=== PATIENT | female | born 1995 | race Caucasian/White ===

== ENCOUNTER 2019-02-23 21:40 | Emergency (ER) | payer OTHER ==
[2019-02-24] MEDS ORDERED: OXYCODONE-ACETAMINOPHEN 5-325 MG TABLET PO ONE (00:45)
--- NOTE | 2019-02-24 00:47 | ER Document Report ---
ED General - General Chief Complaint: Hand Burn Stated Complaint: LEFT HAND BURN Time Seen by Provider: 02/24/19 00:33 - HPI Notes: Patient is a 23-year-old female presents emergency department for evaluation after sustaining a burn to her left hand. She is right-hand dominant. She states it was hot sizzling butter. She was able to complete cooking her meals, eating her meal, then presents to the ED for further evaluation. Her tetanus is up-to-date. She denies any other injury. No inhalation injury. - Related Data Allergies/Adverse Reactions: No Known Allergies Allergy (Unverified 02/23/19 22:29) Home Medications: Oral contraceptives, Zoloft, Nexium Past Medical History - General Information source: Patient - Social History Smoking Status: Current Every Day Smoker Family History: Reviewed & Not Pertinent Patient has suicidal ideation: No Patient has homicidal ideation: No GI Medical History: Reports: Hx Gastroesophageal Reflux Disease Psychiatric Medical History: Reports: Hx Anxiety Past Surgical History: Reports: Hx Section Review of Systems - Review of Systems Constitutional: No symptoms reported EENT: No symptoms reported Cardiovascular: No symptoms reported Respiratory: No symptoms reported Gastrointestinal: No symptoms reported Genitourinary: No symptoms reported Musculoskeletal: No symptoms reported Skin: See HPI Neurological/Psychological: No symptoms reported Physical Exam - Vital signs Vitals: Temp Pulse Resp BP Pulse Ox 98.0 F 91 17 168/100 H 97 02/23/19 22:28 02/23/19 22:28 02/23/19 22:28 02/23/19 22:28 02/23/19 22:28 - Notes Notes: Vital signs reviewed, please refer to chart. Head is normocephalic, atraumatic. Pupils equal round, reactive to light. Neck is supple without meningismus. Heart is regular rate and rhythm. Lungs are clear to auscultation bilaterally. Patient is awake and alert, neurological exam is nonfocal. Examination of left upper extremity yields approximately partial-thickness shin to the dorsum of the hand, and the space between the thumb and the index finger. The ulnar aspect of the thumb and the radial aspect of the index finger are affected. There absolutely no circumferential shin. She does have a 2-1/2 cm bulla on the ulnar aspect of the proximal phalanx of the index finger. She does have a small 1 to 2 cm scattered shin, consistent with/injury, on the radial aspect of the wrist. She has full range of motion of the thumb and all fingers. Sensation is intact. Course - Re-evaluation Re-evalutation: 02/24/19 01:04 Patient presents emergency department for evaluation of partial thickness burn to the left hand. None of these are circumferential. I did de-roof the bullae, using sterile scissors and forceps. The patient tolerated this well. The wound was dressed in Silvadene dressing. The patient was told to keep the wound clean with soap and water, change bandages daily, dressed with bacitracin. None of these shin are circumferential. They are primarily first-degree. None of them cross the joint. I do not believe that this warrants burn center follow-up at this time. She is to follow-up closely with primary care, and patient voices understanding. - Vital Signs Vital signs: Temp Pulse Resp BP Pulse Ox 98.0 F 91 17 168/100 H 97 02/23/19 22:28 02/23/19 22:28 02/23/19 22:28 02/23/19 22:28 02/23/19 22:28 - Laboratory Laboratory results interpreted by me: 02/23/19 22:53 Urine Ketones TRACE H Urine Urobilinogen 2.0 H Discharge - Discharge Clinical Impression: Partial thickness burn of left hand Condition: Stable Disposition: HOME, SELF-CARE Instructions: Shin ([facility]), Soap Cleansing ([facility]) Additional Instructions: Keep wound clean with soap and water. Change bandages daily, more frequently if they become soiled. Follow-up with your primary care physician in 1 to 2 days. If you develop increased pain, fevers, red streaks, vomiting, or any other new or concerning symptoms, please return immediately to the emergency department for reevaluation.
[2019-02-24 00:48] LABS: APPEARANCE,URINE SLIGHTLY-CLOUDY; BILIRUBIN,URINE NEGATIVE (NEGATIVE); CALCIUM OXALATE CRYSTALS,URINE FEW /HPF; COLOR,URINE YELLOW; GLUCOSE, URINE NEGATIVE (NEGATIVE); KETONES,URINE TRACE mg/dL (NEGATIVE); LEUKOCYTE ESTERASE,URINE NEGATIVE (NEGATIVE); NITRITE,URINE NEGATIVE (NEGATIVE); PROTEIN,URINE NEGATIVE (NEGATIVE)
[2019-02-24 02:11] VITALS: BP 136/79
== END 2019-02-24 02:12 | disposition home or self-care (01) ==
LOC: ER 21:40
DX: T23.222A Burn of second degree of single left finger (nail) except thumb, initial encounter (principal); T23.072A Burn of unspecified degree of left wrist, initial encounter; X12.XXXA Contact with other hot fluids, initial encounter; Y93.G3 Activity, cooking and baking; Y92.009 Unspecified place in unspecified non-institutional (private) residence as the place of occurrence of the external cause; K21.9 Gastro-esophageal reflux disease without esophagitis; F17.200 Nicotine dependence, unspecified, uncomplicated; Z79.899 Other long term (current) drug therapy; Z79.3 Long term (current) use of hormonal contraceptives
CPT/HCPCS: 81001

== ENCOUNTER 2020-01-03 16:51 | Emergency (ER) | payer OTHER ==
[2020-01-03] MEDS ORDERED: ONDANSETRON HCL INJ/PF 4 MG/2 ML SDV IV ONE (17:20)
[2020-01-03] MEDS ORDERED: NORMAL SALINE 1000 ML 1,000 ML IV ONE ×2 (17:20→19:34)
--- NOTE | 2020-01-03 17:33 | ER Document Report ---
ED GI/ - General Chief Complaint: Nausea/Vomiting/Diarrhea Stated Complaint: NAUSEA/VOMITING/DIARRHEA Time Seen by Provider: 01/03/20 17:00 Primary Care Provider: JOVANNY NUÑEZ PA [Primary Care Provider] - Follow up as needed Notes: CHIEF COMPLAINT: Abdominal pain and vomiting HPI: 24-year-old obese female presenting for abdominal pain and vomiting over the last 3 days. Some small amount of diarrhea. No fever but has had chills. Reports increased frequency of urination. States the pain is across the entire lower abdomen thought she was getting cramping and discomfort because her menstrual cycle is due she is not sure if she might be but states she is on the pill so believes it to be less likely. Has thrown up multiple times over the last 2 or 3 days. No chest pain shortness of breath or cough. 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 ALLERGIES: I agree with the allergies as charted by the RN. PAST MEDICAL HISTORY/PAST SURGICAL HISTORY: Reviewed and agree as charted by RN. SOCIAL HISTORY: Reviewed and agree as charted by RN. FAMILY HISTORY: No significant familial comorbid conditions directly related to patient complaint EXAM: Reviewed vital signs as charted by RN. CONSTITUTIONAL: Alert and oriented and responds appropriately to questions. Well-appearing; well-nourished HEAD: Normocephalic; atraumatic EYES: PERRL; Conjunctivae clear, sclerae non-icteric ENT: normal nose; no rhinorrhea; moist mucous membranes; pharynx without lesions noted, no uvula edema or deviation, no tonsillar hypertrophy, phonation normal NECK: Supple without meningismus; non-tender; no cervical lymphadenopathy, no masses CARD: Mild tachycardia; no murmurs, no clicks, no rubs, no gallops; symmetric distal pulses RESP: Normal chest excursion without splinting or tachypnea; breath sounds clear and equal bilaterally; no wheezes, no rhonchi, no rales, pulse oximetry 97% on room air not hypoxic ABD/GI: Obese, normal bowel sounds; non-distended; soft, there is tenderness in the left upper quadrant on palpation. There is tenderness in the right lower quadrant on palpation. Mild tenderness over the suprapubic region is noted, no rebound, no guarding; no palpable organomegaly or masses. BACK: The back appears normal and is non-tender to palpation, there is no CVA tenderness EXT: Normal ROM in all joints; non-tender to palpation; no cyanosis, no effusions, no edema SKIN: Normal color for age and race; warm; dry; good turgor; no acute lesions noted NEURO: Moves all extremities equally; Motor and sensory function intact PSYCH: The patient's mood and manner are appropriate. Grooming and personal hygiene are appropriate. MDM: 24-year-old female presenting with abdominal pain vomiting and diarrhea wi th chills. She is concerned for COVID. Will obtain baseline screening labs, plan for CT to evaluate for possible colitis or appendicitis. Will initially obtain test as she was concerned she might be although believes it is less likely - Related Data Allergies/Adverse Reactions: No Known Allergies Allergy (Unverified 02/23/19 22:29) Past Medical History - Social History Smoking Status: Unknown if Ever Smoked Family History: Reviewed & Not Pertinent GI Medical History: Reports: Hx Gastroesophageal Reflux Disease Psychiatric Medical History: Reports: Hx Anxiety Past Surgical History: Reports: Hx Section Physical Exam - Vital signs Vitals: Temp Pulse Resp BP Pulse Ox 99.0 F 112 H 20 172/94 H 96 01/03/20 16:59 01/03/20 16:59 01/03/20 16:59 01/03/20 16:59 01/03/20 16:59 Course - Re-evaluation Re-evalutation: 01/03/20 17:34 Patient also reports loss of taste for the last 3 to 4 days 01/03/20 19:[address] Griffin, surgery. Patient has elevated leukocytosis 22,000, they did not specifically see the appendix on CT but described no inflammatory changes on the CT. I asked him to review the case, he indicates that patient does not need reimaging with oral contrast as there is no stranding and it is unlikely she has appendicitis with no inflammatory changes or stranding noted on the CT given her body size. I will go perform a pelvic on the patient, send her for pelvic ultrasound to ensure we are not missing a pelvic inflammatory disease. Patient on reexam still has tenderness of the right lower quadrant but also across the pelvis and left pelvis now. She does state that she feels slightly better and slightly hungry. The elevated leukocytosis may be reactive to her vomiting. 01/03/20 19:51 With female tape recorder repairer present pelvic exam was performed. Normal external g enitalia. No visible external lesions. No visible purulent discharge. Cervical os appears closed. No significant cervical motion tenderness on exam. Bimanual exam shows moderate tenderness in the left adnexa, mild tenderness in the right adnexa no palpable masses. 01/03/20 21:28 case discussed with attending Dr. Long. Patient she is feeling better. Leukocytosis has improved this may just have been a stress reaction from the vomiting. Ultrasound does not show any acute findings. Low suspicion for PID. Patient is a person under investigation for COVID. She will self quarantine at home, Mallika [place], strict return precautions. If pain worsens, localizes further to the right lower quadrant, she develops fever greater than 101, will return for reevaluation. 01/03/20 21:31 Nursing will recheck vital signs and notify me of abnormalities prior to discharge - Vital Signs Vital signs: Temp Pulse Resp BP Pulse Ox 99 F 112 H 20 172/94 H 96 01/03/20 17:35 01/03/20 16:59 01/03/20 16:59 01/03/20 16:59 01/03/20 16:59 - Laboratory Result Diagrams: 01/03/20 21:00 01/03/20 17:29 Laboratory results interpreted by me: 01/03/20 01/03/20 01/03/20 17:29 17:29 17:29 WBC 22.7 H Hct Absolute Neuts (auto) Seg Neutrophils % Seg Neuts % (Manual) 83 H Lymphocytes % (Manual) 9 L Abs Neuts (Manual) 18.8 H Abs Monocytes (Manual) 1.6 H Sodium 136.8 L Glucose 117 H Urine Blood SMALL H 01/03/20 21:00 WBC 17.6 H Hct 35.8 L Absolute Neuts (auto) 13.9 H Seg Neutrophils % 78.6 H Seg Neuts % (Manual) Lymphocytes % (Manual) Abs Neuts (Manual) Abs Monocytes (Manual) Sodium Glucose Urine Blood Discharge - Discharge Clinical Impression: Abdominal pain, bilateral lower quadrant, Person under investigation for COVID- 19 Vomiting Qualifiers: Vomiting type: unspecified Vomiting Intractability: non-intractable Nausea presence: with nausea Qualified Code(s): R11.2 - Nausea with vomiting, unspecified Leukocytosis Qualifiers: Leukocytosis type: unspecified Qualified Code(s): D72.829 - Elevated white blood cell count, unspecified Condition: Stable Disposition: HOME, SELF-CARE Instructions: Vomiting ([facility]), COVID-19 Guidance for Persons Under Investigation Additional Instructions: You are considered a person under investigation for COVID-19 at this time, self quarantine at home until you have your test results which may take 2 to 5 days. You should hear from someone at the hospital about your test results. Take Zofran for nausea vomiting, Bentyl for abdominal pain or spasm. Your CT imaging, ultrasound imaging today did not show a definitive reason for your pain or vomiting. If you have worsening symptoms please return for reevaluation Prescriptions: Dicyclomine HCl [Bentyl 20 mg Tablet] 20 mg PO Q6H PRN #20 tablet PRN Reason: Ondansetron [Zofran Odt 4 mg Tablet] 1 - 2 tab PO Q4H PRN #15 tab.rapdis PRN Reason: For Nausea/Vomiting Forms: Return to Work Referrals: JOVANNY NUÑEZ PA [Primary Care Provider] - Follow up as needed
[2020-01-03 17:44] LABS: HEMATOCRIT 40.5 % (36.0-47.0); HEMOGLOBIN 13.5 g/dL (12.0-15.5); MEAN CORPUSCULAR HEMOGLOBIN 28.2 pg (27.0-33.4); MEAN CORPUSCULAR HGB CONC 33.5 g/dL (32.0-36.0); MEAN CORPUSCULAR VOLUME 84 fl (80-97); PLATELET COUNT 303 10^3/uL (150-450); RED CELL DISTRIBUTION WIDTH 13.2 % (11.5-14.0); WHITE BLOOD COUNT 22.7 10^3/uL (4.0-10.5)
[2020-01-03 17:48] LABS: APPEARANCE,URINE CLEAR; BILIRUBIN,URINE NEGATIVE (NEGATIVE); COLOR,URINE STRAW; GLUCOSE, URINE NEGATIVE (NEGATIVE); KETONES,URINE NEGATIVE (NEGATIVE); LEUKOCYTE ESTERASE,URINE NEGATIVE (NEGATIVE); NITRITE,URINE NEGATIVE (NEGATIVE); PROTEIN,URINE NEGATIVE (NEGATIVE); URINE SPECIFIC GRAVITY 1.013; UROBILINOGEN,URINE NEGATIVE mg/dL (<2.0)
[2020-01-03 18:01] LABS: ALBUMIN 4.1 g/dL (3.5-5.0); ALKALINE PHOSPHATASE 88 U/L (38-126); ANION GAP 11 (5-19); ASPARTATE AMINO TRANSFERASE 27 U/L (14-36); BILIRUBIN,DIRECT 0.3 mg/dL (0.0-0.4); BILIRUBIN,TOTAL 0.5 mg/dL (0.2-1.3); BLOOD UREA NITROGEN 10 mg/dL (7-20); CALCIUM 9.5 mg/dL (8.4-10.2); CARBON DIOXIDE 24 mmol/L (22-30); CHLORIDE 102 mmol/L (98-107); GLUCOSE 117 mg/dL (75-110); POTASSIUM 4.3 mmol/L (3.6-5.0); TOTAL PROTEIN 7.1 g/dL (6.3-8.2)
[2020-01-03 18:06] LABS: ABSOLUTE MONOCYTES # (MANUAL) 1.6 10^3/uL (0.1-1.4); BASOPHILS % (MANUAL) 0 % (0-2); EOSINOPHILS % (MANUAL) 1 % (0-6); LYMPHOCYTES % (MANUAL) 9 % (13-45); MONOCYTES % (MANUAL) 7 % (3-13); PLATELET COMMENT ADEQUATE; RBC MORPHOLOGY COMMENT NORMO-CYTIC/CHROMIC; SEGMENTED NEUTROPHILS % (MAN) 83 % (42-78); TOTAL CELLS COUNTED 100
[2020-01-03] MEDS ORDERED: MORPHINE SULFATE 10 MG/ML INJ IV ONE (18:18)
--- NOTE | 2020-01-03 18:37 | RADIOLOGY REPORT (SQ) ---
EXAM DESCRIPTION: CHEST SINGLE VIEW IMAGES COMPLETED DATE/TIME: 01/03/2020 6:29 pm REASON FOR STUDY: sob COMPARISON: None. NUMBER OF VIEWS: One view. TECHNIQUE: Single frontal radiographic view of the chest acquired. LIMITATIONS: None. FINDINGS: LUNGS AND PLEURA: No opacities, masses or pneumothorax. No pleural effusion. MEDIASTINUM AND HILAR STRUCTURES: No masses. Contour normal. HEART AND VASCULAR STRUCTURES: Heart normal in size. Normal vasculature. BONES: No acute findings. HARDWARE: None in the chest. OTHER: No other significant finding. IMPRESSION: NO SIGNIFICANT RADIOGRAPHIC FINDING IN THE CHEST. TECHNICAL DOCUMENTATION: JOB ID: [id number] 2010 [employer]- All Rights Reserved Reading location - IP/workstation name: [email or web address]
--- NOTE | 2020-01-03 19:13 | RADIOLOGY REPORT (SQ) ---
EXAM DESCRIPTION: CT ABD/PELVIS WITH IV ONLY IMAGES COMPLETED DATE/TIME: 01/03/2020 6:58 pm REASON FOR STUDY: lower abd pain COMPARISON: None. TECHNIQUE: CT scan of the abdomen and pelvis performed using helical scanning technique with dynamic intravenous contrast injection. No oral contrast. Images reviewed with lung, soft tissue, and bone windows. Reconstructed coronal and sagittal MPR images reviewed. Delayed images for evaluation of the urinary system also acquired. All images stored on PACS. All CT scanners at this facility use dose modulation, iterative reconstruction, and/or weight based d osing when appropriate to reduce radiation dose to as low as reasonably achievable (ALARA). [facility]: Dose Right [facility]: CareDose [facility]: Dose Right [facility]: Teradose 4D [facility]: [employer] CONTRAST TYPE AND DOSE: contrast/concentration: Isovue mmol/ml; Total Contrast Delivered: 99.0 ml; Total Saline Delivered: 55.9 ml RENAL FUNCTION: GFR > 60. RADIATION DOSE: CT Rad equipment meets quality standard of care and radiation dose reduction techniq ues were employed. CTDIvol: 19.2 - 21.1 mGy. DLP: 2096 mGy-cm.. LIMITATIONS: None. FINDINGS: LOWER CHEST: No significant findings. No nodules or infiltrates. LIVER: Normal size. Mild fatty change. No masses. No dilated ducts. SPLEEN: Normal size. No focal lesions. PANCREAS: No masses. No significant calcifications. No adjacent inflammation or peripancreatic fluid collections. Pancreatic duct not dilated. GALLBLADDER: Gallstones. No inflammatory changes to suggest cholecystitis. ADRENAL GLANDS: No significant masses or asymmetry. RIGHT KIDNEY AND URETER: No solid masses. 3 mm midpole calculus. No hydronephrosis or hydroureter . LEFT KIDNEY AND URETER: No solid masses. No significant calcifications. No hydronephrosis or hydr oureter. AORTA AND VESSELS: No aneurysm. No dissection. Renal arteries, SMA, celiac without stenosis. RETROPERITONEUM: No retroperitoneal adenopathy, hemorrhage or masses. BOWEL AND PERITONEAL CAVITY: No masses or inflammatory changes. No free fluid or peritoneal masses. APPENDIX: Not visualized. PELVIS: No mass. No free fluid. Normal bladder. ABDOMINAL WALL: Fat containing lower anterior abdominal wall hernia. BONES: No significant or acute findings. OTHER: No other significant finding. IMPRESSION: 1. Cholelithiasis. 2. Nonobstructing right nephrolithiasis. TECHNICAL DOCUMENTATION: JOB ID: [id number] Quality ID # [id number]: Final reports with documentation of one or more dose reduction techniques (e.g., Au tomated exposure control, adjustment of the mA and/or kV according to patient size, use of iterative reconstruction technique) 2010 [employer]- All Rights Reserved Reading location - IP/workstation name: [email or web address]
[2020-01-03 20:13] LABS: EPITHELIALS (WET MOUNT) 3+ EPITHELIALS SEEN; RBCS (WET MOUNT) NO RBCS SEEN; T.VAGINALIS (WET MOUNT) NO TRICHOMONAS SEEN; WBCS (WET MOUNT) 1+ WBCS SEEN; YEAST (WET MOUNT) NO YEAST SEEN
--- NOTE | 2020-01-03 20:43 | RADIOLOGY REPORT (SQ) ---
EXAM DESCRIPTION: US PELVIS COMPLETED DATE/TME: 01/03/2020 19:31 CLINICAL HISTORY: 24 years, Female, pelvic pain elevated WBC COMPARISON: None. TECHNIQUE: LIMITATIONS: None. FINDINGS: The uterus measures 8.5 x 5.5 x 3.9 cm. There are no fibroids. The endometrial stripe measures 9 mm. The right ovary is unremarkable. Blood flow was demonstrated in the right ovary with Doppler. The left ovary was not visualized. No free fluid. IMPRESSION: No sonographic abnormality. copyright 2010 [email or web address]- All Rights Reserved
[2020-01-03 21:11] LABS: ABSOLUTE BASOPHILS # (AUTO) 0.1 10^3/uL (0.0-0.2); ABSOLUTE EOSINOPHILS # (AUTO) 0.1 10^3/uL (0.0-0.6); ABSOLUTE LYMPHOCYTES (AUTO) 2.3 10^3/uL (0.5-4.7); ABSOLUTE MONOCYTES (AUTO) 1.1 10^3/uL (0.1-1.4); ABSOLUTE NEUT (AUTO) 13.9 10^3/uL (1.7-8.2); BASOPHILS % (AUTO) 0.8 % (0-2); EOSINOPHILS % (AUTO) 0.8 % (0-6); HEMATOCRIT 35.8 % (36.0-47.0); HEMOGLOBIN 12.2 g/dL (12.0-15.5); LYMPHOCYTES % (AUTO) 13.3 % (13-45); MEAN CORPUSCULAR HEMOGLOBIN 28.7 pg (27.0-33.4); MEAN CORPUSCULAR HGB CONC 34.1 g/dL (32.0-36.0); MEAN CORPUSCULAR VOLUME 84 fl (80-97); MONOCYTES % (AUTO) 6.5 % (3-13); PLATELET COUNT 238 10^3/uL (150-450); RED BLOOD COUNT 4.25 10^6/uL (3.72-5.28); RED CELL DISTRIBUTION WIDTH 13.2 % (11.5-14.0); SEGMENTED NEUTROPHILS % (AUTO) 78.6 % (42-78); TOTAL CELLS COUNTED % (AUTO) 100 %; WHITE BLOOD COUNT 17.6 10^3/uL (4.0-10.5)
[2020-01-03 21:45] LABS: CHLAM PCR NOT DETECTED (NOT DETECT)
[2020-01-03 21:50] VITALS: BP 138/86
== END 2020-01-03 21:50 | disposition home or self-care (01) ==
LOC: ER 16:51
DX: R10.30 Lower abdominal pain, unspecified (principal); R11.2 Nausea with vomiting, unspecified; D72.829 Elevated white blood cell count, unspecified; R19.7 Diarrhea, unspecified; Z20.828 Contact with and (suspected) exposure to other viral communicable diseases; E66.9 Obesity, unspecified
CPT/HCPCS: 99285; 96374; 96375; 36415; 87210; 83690; 85025; 87635; 81025; 80053; 81001; 87491; 87591; 71045; 76856; 93976; 74177; J2270; J2405; J7030; C9803